=== PATIENT | male | born 1960 | race Caucasian/White ===

== ENCOUNTER 2021-04-19 05:51 | Inpatient (IN) ==
[~2021-04-19 05:51] MED LIST: ACETAMINOPHEN 500 MG TABLET ONE; FAMOTIDINE 20 MG TABLET ONE; GABAPENTIN 400 MG CAPSULE ONE; VANCOMYCIN 1,000 MG VIAL ONE; ceFAZolin 1,000 MG VIAL ONE
[2021-04-19] MEDS ORDERED: SODIUM CHLORIDE 0.9% 100 ML IV ONE (06:00)
[2021-04-19] MEDS ORDERED: BUPIVACAINE SPINAL 0.75% 2 ML AMP SPINAL ONE (06:00)
[2021-04-19] MEDS ORDERED: LACTATED RINGERS 1,000 ML IV SCH (06:00)
[2021-04-19] MEDS ORDERED: MIDAZOLAM 2 MG/2 ML VIAL ONE (06:00)
[2021-04-19] MEDS ORDERED: LIDOCAINE 2% 5 ML VIAL ONE (06:00)
[2021-04-19] MEDS ORDERED: fentaNYL 100 MCG/2 ML VIAL ONE (06:00)
[2021-04-19] MEDS ORDERED: propofoL 200 MG/20 ML VIAL IV ONE (06:00)
[2021-04-19] MEDS ORDERED: PHENYLEPHRINE 1 MG/10 ML SYRINGE IV ONE (06:08)
[2021-04-19] MEDS ORDERED: DEXAMETHASONE 4 MG/1 ML VIAL ONE (06:16)
[2021-04-19] MEDS ORDERED: ROPIVACAINE 0.5% 30 ML VIAL ONE (06:16)
[2021-04-19] MEDS ORDERED: LIDOCAINE 1% 5 ML VIAL ONE (06:16)
[2021-04-19] MEDS ORDERED: DIAZEPAM 5 MG TABLET PO ONE (06:19)
[2021-04-19] MEDS ORDERED: VANCOMYCIN INJ 1,000 MG in SODIUM CHLORIDE 0.9% 250 ML IV ONE (07:00)
[2021-04-19] MEDS ORDERED: MAGNESIUM HYDROXIDE SUSP 30 ML UDCUP PO PRN (07:05)
[2021-04-19] MEDS ORDERED: BISACODYL 10 MG SUPP RECTAL PRN (07:06)
[2021-04-19] MEDS ORDERED: LACTULOSE 20 GM/30 ML UDCUP PO PRN (07:06)
[2021-04-19] MEDS ORDERED: MORPHINE 2 MG/1 ML SYRINGE IV PRN ×2 (07:06→07:14)
[2021-04-19] MEDS ORDERED: TEMAZEPAM 7.5 MG CAPSULE PO PRN (07:06)
[2021-04-19] MEDS ORDERED: diphenhydrAMINE CAP 25 MG CAPSULE PO PRN (07:06)
[2021-04-19] MEDS ORDERED: PROMETHAZINE 25 MG/1 ML VIAL IM PRN (07:06)
[2021-04-19] MEDS ORDERED: ACETAMINOPHEN 500 MG TABLET PO ONE (07:13)
[2021-04-19] MEDS ORDERED: GABAPENTIN 400 MG CAPSULE PO ONE (07:13)
[2021-04-19] MEDS ORDERED: FAMOTIDINE 20 MG TABLET PO ONE (07:13)
[2021-04-19] MEDS ORDERED: TRANEXAMIC ACID 1,000 MG/10 ML VIAL ONE (07:19)
[2021-04-19] MEDS: ceFAZolin 2,000 MG/50 ML DUPLEX IV SCH ×2 (13:16→21:43)
[2021-04-19] MEDS: ACETAMINOPHEN 500 MG TABLET PO SCH ×2 (13:18→18:49)
[2021-04-19] MEDS: ONDANSETRON 4 MG/2 ML VIAL IV PRN (18:11)
[2021-04-19] MEDS: DOCUSATE SODIUM 100 MG CAPSULE PO SCH (20:18)
[2021-04-19] MEDS: ROSUVASTATIN 10 MG TABLET PO SCH ×2 (20:18→20:24)
[2021-04-19] MEDS: FONDAPARINUX 2.5 MG/0.5 ML SYRINGE SUBCUT SCH (20:18)
[2021-04-20] MEDS: ACETAMINOPHEN 500 MG TABLET PO SCH ×2 (00:24→06:00)
[2021-04-20 05:42] LABS: Basophils % 0.1 % (0.0-0.8); Hemoglobin 11.3 GM/DL (14.0-18.0); Immature Granulocytes % 0.5 %; Immature Granulocytes Absolute 0.05 #; Lymphocytes # 1.4 10*3/uL (1.4-4.0); Lymphocytes % 13.3 % (21.2-54.2); Mean Corpuscular HGB Conc 33.2 GM/DL (32-36); Mean Corpuscular Volume 92.4 FL (87-102); Mean Platelet Volume 9.2 FL (9.6-12.0); Monocytes % 9.1 % (1.7-12.7); Platelet Count 144 T/CUMM (130-400); Red Blood Count 3.68 MC/CUMM (3.8-5.5); Red Cell Distribution Width 12.7 % (9.3-17.3); White Blood Count 10.9 T/CUMM (4-12)
[2021-04-20 06:02] LABS: Calcium 8.5 MG/DL (8.5-10.1); Potassium 4.9 MMOL/L (3.5-5.1)
[2021-04-20] MEDS: DOCUSATE SODIUM 100 MG CAPSULE PO SCH ×2 (09:07→20:37)
[2021-04-20] MEDS: ASPIRIN CHEW 81 MG TABLET PO SCH (09:30)
[2021-04-20] MEDS: CELECOXIB 200 MG CAPSULE PO SCH (09:30)
[2021-04-20] MEDS: PANTOPRAZOLE 40 MG TABLET PO SCH (09:30)
[2021-04-20] MEDS: ONDANSETRON 4 MG/2 ML VIAL IV PRN (17:13)
[2021-04-20] MEDS: FONDAPARINUX 2.5 MG/0.5 ML SYRINGE SUBCUT SCH (20:37)
[2021-04-20] MEDS: ROSUVASTATIN 10 MG TABLET PO SCH (20:40)
[2021-04-21 07:45] VITALS: BP 138/80
[2021-04-21] MEDS: DOCUSATE SODIUM 100 MG CAPSULE PO SCH (08:59)
[2021-04-21] MEDS: PANTOPRAZOLE 40 MG TABLET PO SCH (09:00)
[2021-04-21] MEDS: CELECOXIB 200 MG CAPSULE PO SCH (09:00)
[2021-04-21] MEDS: ASPIRIN CHEW 81 MG TABLET PO SCH (09:00)
[2021-04-21] MEDS: FONDAPARINUX 2.5 MG/0.5 ML SYRINGE SUBCUT SCH (09:40)
== END 2021-04-21 11:20 | disposition home health service (06) | DRG 470 ==
LOC: N.OR 05:51 → N.SDSINP 05:52 → N.3E 09:44
PROVIDERS: ADMIT Orthopaedic Surgery; ATTEND Orthopaedic Surgery